=== PATIENT | female | born 1965 | race Two or more races ===

== ENCOUNTER 2024-12-18 08:07 | Emergency (ER) | payer BC ==
[~2024-12-18] VITALS: Ht 149.9 cm; Wt 83.8 kg
[2024-12-18 08:10] VITALS: BP 154/94; PULSE 75; RESP 18; TEMP 97.5; O2SAT 100
--- NOTE | 2024-12-18 08:48 | ED.PDOC ---
History of Present Illness HPI Comments 59 female presents to the ED with a chief complaint of body pain. Patient states she is currently experiencing chronic generalized body pain. PMHx arthritis, fibromyalgia, HTN. Patient states she has chronic generalized body pain, for the past 4 days noticed pain has worsen, also noticed bruising bilateral inner thighs, dizziness, intermittent confusion. Patient has seen PCP several times, states pain is chronic, advised patient to come to ED if pain worsens. Denies fever, chills, fall, injury, LOC, head injury, abdominal pain, chest pain, shortness of breath. No other symptoms or modifying factors present at this time. Chief Complaint: Body Pain Time Seen by MD: 08:35 Reviewed Notes: Medications, Allergies Allergies: Coded Allergies: NO KNOWN ALLERGIES (Unverified , 12/18/24) Information Source: Patient Mode of Arrival: Ambulatory Severity: Moderate Timing: Days Duration: Since onset Prehospital treatment: None Past Medical History PAST MEDICAL HISTORY: Arthritis, HTN Past Medical History (Other): fibromyalgia Surgical History: Denies all surgeries PEDIATRIC ASSOCIATE History: No Pertinent PEDIATRIC ASSOCIATE History Family History Family History: Reviewed,noncontributory to illness, No family hx of Cancer, No family hx of DM, No family hx of Heart carter, No family hx of HTN, No family hx ofKidney carter, No family hx of Liver carter, No family hx of Lung carter, No family hx of Stroke Social History Smoker: Non-Smoker Alcohol: Occasionally Drugs: Denies Drug Use Lives In: Home Constitutional: reports: others (chronic generalized pain); denies: chills, diaphoresis, fatigue, fever, malaise, sweats, weakness EENTM: denies: blurred vision, double vision, ear bleeding, ear discharge, ear drainage, ear pain, ear ringing, eye pain, eye redness, hearing loss, mouth pain, mouth swelling, nasal discharge, nose bleeding, nose congestion, nose pain, photophobia, tearing, throat pain, throat swelling, voice changes, others Respiratory: denies: cough, hemoptysis, orthopnea, SOB at rest, shortness of breath, SOB with excertion, stridor, wheezing, others Cardiovascular: denies: chest pain, dizzy spells, diaphoresis, Dyspnea on exertion, edema, irregular heart beat, left arm pain, lightheadedness, palpitations, PND, syncope, others Gastrointestinal: denies: abdomen distended, abdominal pain, blood streaked bowels, constipated, diarrhea, dysphagia, difficulty swallowing, hematemesis, melena, nausea, poor appetite, poor fluid intake, rectal bleeding, rectal pain, vomiting, others Genitourinary: denies: abnormal vagina bleeding, burning, dyspareunia, dysuria, flank pain, frequency, hematuria, incontinence, pain, , vagina discharge, urgency, others Neurological: reports: dizziness; denies: fainting, headache, left sided numbne ss, left sided weakness, numbness, paresthesia, pre-existing deficit, right sided numbness, right sided weakness, seizure, speech problems, tingling, tremors, weakness, others Musculoskeletal: denies: back pain, gout, joint pain, joint swelling, muscle pain, muscle stiffness, neck pain, others Integumetry: reports: bruises (inner thighs); denies: change in color, change in hair/nails, dryness, laceration, lesions, lumps, rash, wounds, others Allergic/Immunocompromised: denies: Difficulty Healing, Frequent Infections, Hives, Itching, others Hematologic/Lymphatic: denies: anemia, blood clots, easy bleeding, easy bruising, swollen glands, others Endocrine: denies: excessive hunger, excessive sweating, excessive thirst, excessive urination, flushing, intolerance to cold, intolerance to heat, unexplained weight gain, unexplained weight loss, others Psychiatric: reports: others (confusion); denies: anxiety, bipolar disorder, depression, hopeless, panic disorder, schizophrenia, sleepless, suicidal All Other Systems: Reviewed and Negative Physical Exam General Appearance: Moderate Distress, Normal HEENT: Normal ENT Inspection, Pharynx Normal, TMs Normal Neck: Full Range of Motion, Non-Tender, Normal, Normal Inspection Respiratory: Chest Non-Tender, Lungs Clear, No Accessory Muscle Use, No Respiratory Distress, Normal Breath Sounds Cardiovascular: No Edema, No JVD, No Murmur, No Gallop, Normal Peripheral Pulses, Regular Rate/Rhythm Breast Exam: Deferred Gastrointestinal: No Organomegaly, Non Tender, No Pulsatile Mass, Normal Bowel Sounds, Soft Genitalia: Deferred Pelvic: Deferred Rectal: Deferred Extremities: No calf tenderness, Normal capillary refill, Normal inspection, Normal range of motion, Non-tender, No pedal edema Musculoskeletal : Apperance: Normal Neurologic: Alert, setter out II-XII nml as Tested, No Motor Deficits, Normal Affect, Normal Mood, No Sensory Deficits Cerebellar Function: Normal Reflexes: Normal Skin: Dry, Normal Color, Warm Peripheral Pulses: 3+ Radial (R), 3+ Radial (L) Lymphatic: No Adenopathy Was a procedure done? Was a procedure done?: No Differential Dx Considerations may include: Anemia Electrolyte imbalance X-Ray, Labs, Meds, VS Vital Signs Date Time Temp Pulse Resp B/P (MAP) Pulse Ox O2 Delivery O2 Flow Rate FiO2 12/18/24 08:10 97.5 75 18 154/94 100 97.5 Patient alert. Vitals stable. No sign of distress. Answering all questions. Ambulating. Abdomen is soft nontender. Explained to the patient. Continue monitoring. Time of 1ST Reevaluation: 09:05 Reevaluation 1ST: Unchanged Patient Education/Counseling: Diagnosis, Treatment, Prognosis Family Education/Counseling: No Family Present SEPSIS Sepsis Screen Date sepsis recognized/suspect: Dec 18, 2024 Time Sepsis recognized/suspect: 08 Recent Procedure: No On Antibiotic Therapy: No Respiratory Rate >20: No Heart Rate >90: No Temp<36 C (96.8 F) or >38.3 C: No SBP <90 or MAP <65 mmHG: No New Acute Mental Status Change: No Is the patient on CPAP, BIPAP,: No Vital Signs Date Time Temp Pulse Resp B/P (MAP) Pulse Ox O2 Delivery O2 Flow Rate FiO2 12/18/24 08:10 97.5 75 18 154/94 100 97.5 Departure 1 Departure Time of Disposition: 17:41 Impression: Primary Impression: Fibromyalgia Disposition: 09 ADMITTED INPATIENT Admit to: Med Surg Condition: Guarded Critical Care Note Critical Care Time?: No Stability Stability form required: No Heart Score Heart Score: Heart Score Response (Comments) Value History N/A 0 EKG N/A 0 Age N/A 0 Risk Factors N/A 0 Troponin N/A 0 Total 0 I personally scribed for WALLY DC MD ([email or web address]) on 12/18/24 at 08:48. Electronically submitted by Gia Moeller ([email or web address]). WALLY DC MD Dec 18, 2024 08:48
== END 2024-12-18 10:06 | disposition left against medical advice (07) ==
LOC: ER 08:07
DX: S70.12XA Contusion of left thigh, initial encounter (principal); S70.11XA Contusion of right thigh, initial encounter; M79.7 Fibromyalgia; I10 Essential (primary) hypertension; M19.90 Unspecified osteoarthritis, unspecified site; X58.XXXA Exposure to other specified factors, initial encounter; Y93.89 Activity, other specified; Y92.89 Other specified places as the place of occurrence of the external cause; Y99.8 Other external cause status